=== PATIENT | female | born 1995 | race Two or more races ===

== ENCOUNTER 2020-03-27 18:28 | Emergency (ER) | payer OTHER ==
[~2020-03-27] VITALS: Ht 157.5 cm; Wt 75.3 kg
[2020-03-27 18:57] VITALS: BP 119/90
[2020-03-27] MEDS ORDERED: PROMETHAZINE HCL 6.25 MG/5 ML ORAL SYRUP PO ONE (19:45)
[2020-03-27] MEDS ORDERED: methylPREDNISolone SOD SUCC 125 MG/2 ML VL IM ONE (19:45)
[2020-03-27] MEDS ORDERED: PROMETHAZINE HCL 25 MG/ML 1ML IM ONE (20:15)
== END 2020-03-27 21:16 | disposition home or self-care (01) ==
LOC: ER 18:28
DX: T78.40XA Allergy, unspecified, initial encounter (principal); X58.XXXA Exposure to other specified factors, initial encounter
CPT/HCPCS: 70360; 96372; 99284; J2550; J2930